=== PATIENT | female | born 1935 | race Caucasian/White ===

== ENCOUNTER → 2017-01-10 08:01 | Outpatient (CLI) | payer MEDICARE, OTHER ==
[2013-07-24 10:17] VITALS: BMI 36.6
[~2017-01-10 08:01] MED LIST: AMBIEN10 MG PO; ASPIRIN 81 MG E81 MG PO; CELEBREX200 MG PO; CELEXA40 MG PO; DOXYCYCLINE HY100 M2 PO; HCTZ25 MG PO; MICRO-K10 MEQ PO; NEXIUM40 MG PO; SYNTHROID125 MCG PO; WELCHOL625 MG PO; ZYLOPRIM300 MG PO
== END | disposition home or self-care (01) ==
LOC: D.MRI 08:01
DX: H90.5 Unspecified sensorineural hearing loss (principal)

== ENCOUNTER 2020-09-13 17:59 | Emergency (ER) | payer MEDICARE, OTHER ==
[~2020-09-13] VITALS: Ht 165.1 cm; Wt 77.3 kg
[2020-09-13 18:15] VITALS: BP 109/50; Ht 165.1 cm; Wt 77.3 kg
== END 2020-09-13 19:30 | disposition left against medical advice (07) ==
LOC: D.ER 17:59
DX: H91.90 Unspecified hearing loss, unspecified ear (principal)